=== PATIENT | female | born 1955 | race Caucasian/White ===

== ENCOUNTER 2018-01-25 18:40 | Observation (INO) | payer OTHER, SELFPAY ==
[2018-01-25] VITALS (13 sets, daily range): BP systolic 122–154; BP diastolic 54–97; PULSE 98–124; RESP 18–92; TEMP 37.3–37.7; O2SAT 19–95; BMI 31.1
--- NOTE | 2018-01-25 19:12 | NURSING ---
NO OLD EKG'S IN MUSE
[2018-01-25] MEDS: Acetaminophen 325 MG Tablet 650 MG PO (19:32)
[2018-01-25] MEDS: 0.9% Normal Saline 1,000 ML 1000 ML IV (19:32)
[2018-01-25 19:42] LABS: Absolute Lymphocyte Count 1.03 X10^3/ul (0.83-4.51); Absolute Neutrophil Count 9.4 X10^3/uL (2.0-7.7); Basophil# 0.02 X10^3/uL; Basophil% 0.2 % (0-1); Eosinophil# 0.01 X10^3/uL; Eosinophils% 0.1 % (0-5); Hematocrit 38.1 % (37-47); Hemoglobin 12.6 g/dl (12.0-15.0); Lymphocyte # 1.03 X10^3/ul (4.0); Lymphocyte % 8.6 % (19-41); Mean Corp Hgb Conc 33.1 g/gl (32-36); Mean Corpuscular Hgb 29.1 pg (27.0-32.0); Mean Platelet Vol. 9.6 fl (6.2-12.0); Monocyte# 1.45 X10^3/uL; Monocyte% 12.1 % (0-10); Neutrophil # 9.42 X10^3/uL (2.7-7.7); Neutrophil % 78.7 % (47-70); Platelet Count 227 K/mm3 (150-450); RBC Distribution Width CV 12.1 % (11.6-14.6); RBC Distribution Width SD 39.4 fl (35.1-43.9); Red Blood Count 4.33 M/mm3 (4.2-5.4)
[2018-01-25] MEDS: Albuterol 2.5 MG/3 ML VIAL.NEB. INHALATION ×3 (19:45→21:48)
[2018-01-25 19:46] LABS: POSITIVE COUNT NO; POSITIVE DIFFERENTIAL NO; POSITIVE MORPHOLOGY NO
[2018-01-25] MEDS: Ondansetron 4 MG/2 ML Vial IV (19:55)
[2018-01-25 20:10] LABS: Anion Gap 6 (5-15); BUN 23 mg/dL (7-18); BUN/Creat Ratio 22.1 RATIO (10-20); Chloride 105 mmol/L (98-107); Creatinine, Serum 1.04 mg/dL (0.55-1.02); EST Glomerular Filtration Rate 57 mL/min (>60); Est Glom Filt Rate - Afr Amer 70 mL/min (>60); Estimated Creatinine Clearance 55.94 ml/min; Glucose 122 mg/dL (74-106); Potassium 4.6 mmol/L (3.5-5.1); Sodium Level 138 mmol/L (136-145)
--- NOTE | 2018-01-25 20:35 | RAD_ITS ---
STUDY: X-RAY CHEST REASON FOR EXAM: Female, 62 years old. DYSPNEA TECHNIQUE: Frontal and lateral views of the chest. COMPARISON: None. FINDINGS: Chronic appearing increased interstitial lung markings. There is no demonstrated pleural abnormality. Normal heart size. Normal mediastinum and matthew. Normal visualized pulmonary arteries. There is atherosclerotic calcification of the aortic arch with tortuosity. There are diffuse degenerative changes of the visualized thoracic spine. There is degenerative osteoarthritis of the bilateral shoulders. There is no demonstrated abnormality of the visualized soft tissue structures of the upper abdomen. RAD/Chest PA and Lateral IMPRESSION: There are no acute findings. Electronically Signed: Damaso Sánchez MD at 21:01 EST , Service support ,
--- NOTE | 2018-01-25 22:30 | ED.DCSUM_ITS ---
- ER Visit Summary Date of Service: 01/25/18 Chief Complaint: Shortness of breath and wheezing. History of Present Illness: The patient is a 62 F sent from her doctor's office because of worsening symptoms since onset, Thursday. She complains of fever, chills and sweats. Today she complains of runny nose and sore throat. She has complained of intermittent palpitations since onset of illness. She does complain of shortness of breath cough productive of green colored sputum and dyspnea with exertion. She is a non-smoker. She has no GI symptoms. She has no urologic symptoms. She does complain of myalgias and arthralgias. Denies rash. She also complains of headache with generalized weakness. She denies any endocrine symptoms. She denies bruising easily. She denies any allergic symptoms. She has a past medical history of hypertension. She is a schoolteacher. She did not receive an influenza vaccine this year. Physical Examination: Vitals remarkable blood pressure 134/97 and heart rate 102. Pulse ox was 93% on room air. She is a heavyset woman with a BMI of 31.2. Nares patent with slight clear discharge. TMs normal. Posterior pharynx without erythema or exudate. Heart is rapid and regular without murmur , gallop or rub. Patient has bilateral rhonchi and wheezing with increased extra phase. Abdomen is soft nontender with no paraspinal megaly. There is no CVA tenderness noted. There is no skin lesion or rash noted. Neuro exam is nonfocal. Test Results: Two-view chest x-ray was obtained and reveals no acute pathology. White count is 12,000 with 79 segs. Retinae is slightly elevated 1.04 with a GFR 57. Glucose is 122. Influenza screen is negative. Patient is now requiring oxygen and on 2-3 L her saturation is only 91%. Emergency Department Course and Treatment: Was treated with albuterol ?3 and placed on oxygen for hypoxia. When she was reassessed at 20-20 she still has significant wheezing. She received a dose of Solu-Medrol. She she reports green colored sputum even though her chest x-ray is negative will administer a dose of levofloxacin. Treatment Plan: Hospitalist has been paged for admission to the hospital Disposition: [facility] Impression: 1. Respiratory infection 2. Bronchospasm 3. Respiratory failure with hypoxia 4. History of hypertension This note was generated with [employer] dictation software. It may contain incorrect words, spelling, and punctuation that were not noted in review of the chart prior to signing ED Disposition - Plan for ED Patient: Chief Complaint: Shortness of Breath Referrals: Deloris Leblanc MD [Primary Care Provider] -
[2018-01-25] MEDS: MethylPREDNISolone 125 MG/2 ML Vial IV (22:38)
--- NOTE | 2018-01-25 23:49 | HP.PCM_ITS ---
Problem List (1) Asthma attack Status: Acute Qualifiers: Asthma severity: severe Asthma persistence: persistent Qualified Code(s) : J45.51 - Severe persistent asthma with (acute) exacerbation History of Present Illness Date of Admission: 01/25/18 Chief Complaint: shortness of breath The patient is a 62 year old female patient who presents to the ER with shortness of breath. Onset began last Thursday when she presented to an urgent care and was placed on oral steroids and OTC treatment for presumed viral URI. This did get better but by the weekend she started having trouble again. Today despite knowing she had significant difficulty breathing she went to work anyway but could not complete her workday. She became very anxious as she felt as if she was unable to get sufficient air when she was breathing. CXR is negative for pneumonia. She is requiring oxygen to maintain her pulse oxygenation above 90%. After breathing treatments x 3, Solu-Medrol and Levaquin the patient started to improve. She will be admitted to medical surgical floor for continuation of her treatment. Past Medical History Allergies nitrofurantoin [From Macrobid] Adverse Reaction (Verified 01/25/18 18:45) Unknown Home Medications: Ambulatory Orders Medication Instructions Recorded Multivitamins,Therapeutic 1 tab PO DAILY 04/26/15 [Multivitamin] Valsartan/Hydrochlorothiazide 0.5 tab PO DAILY 01/25/18 [Valsartan-Hctz 160-25 mg Tab] Surgical History: no surgical history Smoking Status: Never smoker - *Family History Maternal History Items: No pertinent history Review of Systems Constitutional: Reports: Fever. Denies: Chills, Weight Change HEENT: Denies: Head Aches, Sinus Congestion, Sinus Drainage Cardiovascular: Denies: Chest Pain, Palpitations Respiratory: Reports: Cough, Pleuritic Pain, Shortness of breath at rest, Shortness of breath upon exertion, Wheezing. Denies: Sputum production Gastrointestinal: Denies: Abdominal Pain, Nausea, Vomiting Genitourinary: Denies: Dysuria Musculoskeletal: Denies: Joint Pain, Joint Tenderness Skin: Denies: Rash, Wounds Neurological: Denies: Numbness, Tingling, Focal weakness Psychiatric: Reports: Anxiety. Denies: Depression, Homicidal Ideations, Suicidal Ideations Hematologic/ Lymphatic: Denies: Easy Bruising, Easy Bleeding VTE Information - Inpt Only VTE Present on Admission: No VTE Mechan Device Prophylaxis: None VTE Pharm Prophylaxis ordered?: Yes Patient Problems: Active and Suspected Problems Asthma attack (Acute) - Physical Exam General: Alert, Oriented x3, Cooperative HEENT: Atraumatic, Normocephalic Neck: Supple Lungs: Diminished, Rhonchi, Tachypneic, Wheezes Cardiovascular: Regular Rhythm, Normal S1, Normal S2, No murmurs, Tachycardic Abdomen: Bowel Sounds Present, Soft, Non Tender, Obese Extremities: No edema, Capillary Refill Less than 3 Seconds Skin: No rashes Musculoskeletal: No Tenderness to Palpation of Joints or Extremities Neurological: Neuro grossly intact Psych/Mental Status: Normal Affect, Appropriate Vital Signs Temp Pulse Resp BP Pulse Ox 99.1 F 115 H 92 H 122/59 H 20 01/25/18 23:16 01/25/18 23:16 01/25/18 23:16 01/25/18 23:16 01/25/18 23:16 Oxygen Flow Rate 3 Oxygen Delivery Method Nasal Cannula Weight: 199 lb Body Mass Index (BMI) 31.1 Microbiology Past 72 Hours 01/25/18 19:47 Influenza Types A,B Direct FA (KANNAN) - Final Mucosa - Nose Laboratory Tests Past 24 Hrs 01/25/18 01/25/18 19:29 19:29 WBC 12.0 H RBC 4.33 Hgb 12.6 Hct 38.1 MCV 88.0 MCH 29.1 MCHC 33.1 RDW 12.1 RDW Differential 39.4 Plt Count 227 MPV 9.6 Immature Gran % (Auto) 0.300 Neut % (Auto) 78.7 H Lymph % (Auto) 8.6 L [place] % (Auto) 12.1 H Eos % (Auto) 0.1 Baso % (Auto) 0.2 Absolute Neuts (auto) 9.4 H Absolute Lymphs (auto) 1.03 Total Counted Not Reportable Sodium 138 Potassium 4.6 Chloride 105 Carbon Dioxide 27.0 Anion Gap 6 BUN 23 H Creatinine 1.04 H Estim Creat Clear Calc 55.94 Est GFR (MDRD) Af Amer 70 Est GFR (MDRD) Non-Af 57 L BUN/Creatinine Ratio 22.1 H Glucose 122 H Calcium 9.0 TSH Cancelled Assessment/Plan Active and Suspected Problems Asthma attack (Acute) Plan - admit to medical surgical floor - duoneb INH q 4hrs - solumedrol 40mg IV q 6hrs - levaquin 500mg q 24hrs - oxygen per protocol - continue routine home medications - cbc, bmp in am - LMWH for DVT prophylaxis Code Visit Inpatient E&M: 71905 Init Hosp L3
[2018-01-26] VITALS (15 sets, daily range): BP systolic 113–142; BP diastolic 64–67; PULSE 76–113; RESP 12–20; TEMP 36.6–38.9; O2SAT 93–98; BMI 31.6; BMI 31.7
[2018-01-26] MEDS: Acetaminophen 325 MG Tablet 650 MG PO (00:24)
[2018-01-26] MEDS: 0.9% NaCl Peripheral Flush Adult/Peds IV ×4 (06:01→13:45)
[2018-01-26 06:24] LABS: Absolute Lymphocyte Count 0.57 X10^3/ul (0.83-4.51); Absolute Neutrophil Count 11.1 X10^3/uL (2.0-7.7); Basophil# 0.01 X10^3/uL; Basophil% 0.1 % (0-1); Hematocrit 36.2 % (37-47); Hemoglobin 11.9 g/dl (12.0-15.0); Lymphocyte # 0.57 X10^3/ul (4.0); Lymphocyte % 4.6 % (19-41); Mean Corp Hgb Conc 32.9 g/gl (32-36); Mean Corpuscular Volume 88.3 fL (81-99); Mean Platelet Vol. 9.5 fl (6.2-12.0); Monocyte# 0.86 X10^3/uL; Monocyte% 6.9 % (0-10); Neutrophil # 11.06 X10^3/uL (2.7-7.7); Neutrophil % 88.2 % (47-70); Platelet Count 222 K/mm3 (150-450); RBC Distribution Width CV 12.3 % (11.6-14.6); RBC Distribution Width SD 39.7 fl (35.1-43.9); White Blood Count 12.5 K/mm3 (4.4-11.0)
[2018-01-26 06:26] LABS: Differential Indicated SCAN CRITERIA MET; POSITIVE COUNT NO; POSITIVE DIFFERENTIAL YES; POSITIVE MORPHOLOGY NO
[2018-01-26 06:44] LABS: ALB/GLOB Ratio 0.7 RATIO (0.9-2.4); AST(SGOT) 9 U/L (15-37); Alanine Aminotransfer ALT/SGPT 19 U/L (13-56); Albumin, Serum 2.8 g/dL (3.2-5.0); Alkaline Phosphatase 72 U/L (45-117); Anion Gap 7 (5-15); BUN 15 mg/dL (7-18); BUN/Creat Ratio 17.2 RATIO (10-20); Calcium,Total 8.4 mg/dL (8.5-10.1); Chloride 108 mmol/L (98-107); Creatinine, Serum 0.87 mg/dL (0.55-1.02); EST Glomerular Filtration Rate 70 mL/min (>60); Est Glom Filt Rate - Afr Amer 85 mL/min (>60); Estimated Creatinine Clearance 66.87 ml/min; Globulin 3.8 g/dL (2.2-4.2); Glucose 222 mg/dL (74-106); Potassium 3.9 mmol/L (3.5-5.1); Protein, Total 6.6 g/dL (6.4-8.2); Sodium Level 142 mmol/L (136-145)
--- NOTE | 2018-01-26 06:46 | PCM.PROGNOTE ---
Patient Problems: Active and Suspected Problems Asthma attack (Acute) Subjective: Levaquin day #2 Patient is a 62-year-old female with a past medical history of hypertension who presented to the emergency department at [facility] on 01/25/2018 complaining of shortness of breath for the preceding 5 days. She had been seen at the urgent care and placed on steroids and [id number] of supportive medications for presumed viral URI. Vital signs at presentation to the emergency room were temp 99.3, pulse rate 98, blood pressure 154/91, respiratory rate 20 and she was 90% saturated on room air. Significant lab included a white blood cell count of 12,000 with 79% neutrophils. Hemoglobin and platelets were within normal limits. Electrolytes were within normal limits but the BUN was increased at 23 and the creatinine was 1.04. We have no baseline creatinine. Random blood sugar was elevated at 122 and she has no history of diabetes mellitus. LFTs were unremarkable. Influenza swab was negative. Chest x-ray had no infiltrates. Physical examination revealed her to be tachypneic with diminished breath sounds, rhonchi and wheezes. She is a lifelong non-smoker. She was admitted to the hospital with a diagnosis of acute bronchospastic RI and placed on Levaquin, aerosolized bronchodilators and high-dose intravenous steroids. T-max was 102 overnight. Vital signs are stable. She is 95-97% saturated on a 2 L nasal cannula with a respiratory rate of 16-18. White blood cell count today is 12.5 but she has been on high-dose steroids since admission. Creat has improved and is 0.87 today, down from 1.04 yesterday. Respiratory panel is positive for Human Metaphpneumo Virus. She tells me she feels very tired but her breathing is somewhat better than yesterday. She does continue to have shortness of breath with exertion. Cough is mild. She did have asthma as a child and still uses a as needed rescue inhaler. She seems to have more wheezing when she gets bronchitis. 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 - Physical Exam General: Alert, Oriented x3, Cooperative, No apparent distress, - - looks tired HEENT: Atraumatic, PERRLA, EOMI Oral: Moist Mucosa, No Gingival or Mucosal Lesions/ Ulcerations Neck: Supple, No Nodes, No Nuchal Rigidity, Trachea Midline Lungs: Normal air movement, No rales, Rhonchi, - - She is not tachypneic and has no conversational dyspnea or accessory muscle use at rest. There is no tight wheezing but she does have coarse breath sounds bilaterally. Cardiovascular: Regular rate, Regular Rhythm, Normal S1, Normal S2, No murmurs, No rub noted, No Gallop Abdomen: Bowel Sounds Present, Soft, Non Tender, Non-Distended Extremities: No clubbing, No cyanosis, No edema, No Calf Tenderness, Peripheral Pulses Normal Skin: No rashes, No breakdown Psych/Mental Status: Normal Affect, Appropriate Vital Signs Temp Pulse Resp BP Pulse Ox 97.9 F 79 16 128/66 H 97 01/26/18 05:58 01/26/18 05:58 01/26/18 05:58 01/26/18 05:58 01/26/18 05:58 Oxygen Flow Rate 2 Oxygen Delivery Method Nasal Cannula Weight: 202 lb 6.15 oz Body Mass Index (BMI) 31.6 Intake and Output for Last 24 Hours 01/24/18 01/25/18 01/26/18 23:59 23:59 23:59 Intake Total 0 / 0 Balance 0 / 0 Laboratory Tests Past 24 Hrs 01/26/18 01/26/18 05:55 05:55 WBC 12.5 H RBC 4.10 L Hgb 11.9 L Hct 36.2 L MCV 88.3 MCH 29.0 MCHC 32.9 RDW 12.3 RDW Differential 39.7 Plt Count 222 MPV 9.5 Immature Gran % (Auto) 0.200 Neut % (Auto) 88.2 H Lymph % (Auto) 4.6 L [place] % (Auto) 6.9 Eos % (Auto) 0.0 Baso % (Auto) 0.1 Absolute Neuts (auto) 11.1 H Absolute Lymphs (auto) 0.57 L Total Counted Not Reportable Differential Comment Sodium 142 Potassium 3.9 Chloride 108 H Carbon Dioxide 27.0 Anion Gap 7 BUN 15 Creatinine 0.87 Estim Creat Clear Calc 66.87 Est GFR (MDRD) Af Amer 85 Est GFR (MDRD) Non-Af 70 BUN/Creatinine Ratio 17.2 Glucose 222 H Calcium 8.4 L Total Bilirubin 0.80 AST 9 L ALT 19 Alkaline Phosphatase 72 Total Protein 6.6 Albumin 2.8 L Globulin 3.8 Albumin/Globulin Ratio 0.7 L Assessment/Plan Active and Suspected Problems Asthma attack (Acute) Impressions 1. Acute bronchitis secondary to Human Metaphpneumo Virus 2. Acute exacerbation of asthma secondary to acute viral bronchitis 3. Hypertension 4. Mild dehydration with elevated creatinine at admission-resolved DC the HCTZ since the creat was increased at admission and her appetite is decreased DC the Levaquin and treat with 3 doses of PO Azithromycin Transition to PO Prednisone in the AM and will need a steroid taper at [place] Ambulatory pulse ox on RA in the AM No work for the rest of the week Probable DC tomorrow. symbicort at [place] and will continue the rescue inhaler she has at home Code Visit Inpatient E&M: [id number] Subs Hosp L2
--- NOTE | 2018-01-26 06:57 | PN_ITS ---
Patient Problems: Active and Suspected Problems Asthma attack (Acute) Subjective: Levaquin day #2 Patient is a 62-year-old female with a past medical history of hypertension who presented to the emergency department at [facility] on 2017 complaining of shortness of breath for the preceding 5 days. She had been seen at the urgent care and placed on steroids and scez-jhy-xpteofl of supportive medications for presumed viral URI. Vital signs at presentation to the emergency room were temp 99.3, pulse rate 98, blood pressure 154/91, respiratory rate 20 and she was 90% saturated on room air. Significant lab included a white blood cell count of 12,000 with 79% neutrophils. Hemoglobin and platelets were within normal limits. Electrolytes were within normal limits but the BUN was increased at 23 and the creatinine was 1.04. We have no baseline creatinine. Random blood sugar was elevated at 122 and she has no history of diabetes mellitus. LFTs were unremarkable. Influenza swab was negative. Chest x-ray had no infiltrates. Physical examination revealed her to be tachypneic with diminished breath sounds, rhonchi and wheezes. She is a lifelong non-smoker. She was admitted to the hospital with a diagnosis of acute bronchospastic RI and placed on Levaquin, aerosolized bronchodilators and high-dose intravenous steroids. T-max was 102 overnight. Vital signs are stable. She is 95-97% saturated on a 2 L nasal cannula with a respiratory rate of 16-18. White blood cell count today is 12.5 but she has been on high-dose steroids since admission. Creat has improved and is 0.87 today, down from 1.04 yesterday. Respiratory panel is positive for Human Metaphpneumo Virus. She tells me she feels very tired but her breathing is somewhat better than yesterday. She does continue to have shortness of breath with exertion. Cough is mild. She did have asthma as a child and still uses a as needed rescue inhaler. She seems to have more wheezing when she gets bronchitis. 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 - Physical Exam General: Alert, Oriented x3, Cooperative, No apparent distress, - - looks tired HEENT: Atraumatic, PERRLA, EOMI Oral: Moist Mucosa, No Gingival or Mucosal Lesions/ Ulcerations Neck: Supple, No Nodes, No Nuchal Rigidity, Trachea Midline Lungs: Normal air movement, No rales, Rhonchi, - - She is not tachypneic and has no conversational dyspnea or accessory muscle use at rest. There is no tight wheezing but she does have coarse breath sounds bilaterally. Cardiovascular: Regular rate, Regular Rhythm, Normal S1, Normal S2, No murmurs, No rub noted, No Gallop Abdomen: Bowel Sounds Present, Soft, Non Tender, Non-Distended Extremities: No clubbing, No cyanosis, No edema, No Calf Tenderness, Peripheral Pulses Normal Skin: No rashes, No breakdown Psych/Mental Status: Normal Affect, Appropriate Vital Signs Temp Pulse Resp BP Pulse Ox 97.9 F 79 16 128/66 H 97 01/26/18 05:58 01/26/18 05:58 01/26/18 05:58 01/26/18 05:58 01/26/18 05:58 Oxygen Flow Rate 2 Oxygen Delivery Method Nasal Cannula Weight: 202 lb 6.15 oz Body Mass Index (BMI) 31.6 Intake and Output for Last 24 Hours 01/24/18 01/25/18 01/26/18 23:59 23:59 23:59 Intake Total 0 / 0 Balance 0 / 0 Laboratory Tests Past 24 Hrs 01/26/18 01/26/18 05:55 05:55 WBC 12.5 H RBC 4.10 L Hgb 11.9 L Hct 36.2 L MCV 88.3 MCH 29.0 MCHC 32.9 RDW 12.3 RDW Differential 39.7 Plt Count 222 MPV 9.5 Immature Gran % (Auto) 0.200 Neut % (Auto) 88.2 H Lymph % (Auto) 4.6 L [place] % (Auto) 6.9 Eos % (Auto) 0.0 Baso % (Auto) 0.1 Absolute Neuts (auto) 11.1 H Absolute Lymphs (auto) 0.57 L Total Counted Not Reportable Differential Comment Sodium 142 Potassium 3.9 Chloride 108 H Carbon Dioxide 27.0 Anion Gap 7 BUN 15 Creatinine 0.87 Estim Creat Clear Calc 66.87 Est GFR (MDRD) Af Amer 85 Est GFR (MDRD) Non-Af 70 BUN/Creatinine Ratio 17.2 Glucose 222 H Calcium 8.4 L Total Bilirubin 0.80 AST 9 L ALT 19 Alkaline Phosphatase 72 Total Protein 6.6 Albumin 2.8 L Globulin 3.8 Albumin/Globulin Ratio 0.7 L Assessment/Plan Active and Suspected Problems Asthma attack (Acute) Impressions 1. Acute bronchitis secondary to Human Metaphpneumo Virus 2. Acute exacerbation of asthma secondary to acute viral bronchitis 3. Hypertension 4. Mild dehydration with elevated creatinine at admission-resolved DC the HCTZ since the creat was increased at admission and her appetite is decreased DC the Levaquin and treat with 3 doses of PO Azithromycin Transition to PO Prednisone in the AM and will need a steroid taper at [place] Ambulatory pulse ox on RA in the AM No work for the rest of the week Probable DC tomorrow. symbicort at [place] and will continue the rescue inhaler she has at home Code Visit Inpatient E&M: 45589 Subs Hosp L2
[2018-01-26] MEDS: Ipratropium/Albuterol Sulfate 3 ML AMPUL.NEB INHALATION ×4 (07:00→23:02)
[2018-01-26 08:13] LABS: Hemoglobin A1c 5.8 % (4.2-6.3)
[2018-01-26] MEDS: Multivitamins,Therapeutic Tablet 1 TABLET PO (08:21)
[2018-01-26] MEDS: HYDROCHLOROTHIAZIDE 12.5 MG CAPSULE PO (08:21)
[2018-01-26 08:27] LABS: BNP,B-Type NATRIURETIC PEPTIDE 183.7 pg/mL (0-100)
--- NOTE | 2018-01-26 10:22 | CASEMGMT ---
RN MISSY Face to Face with patient for initial transition planning/care coordination assessment. RN CM introduced self and role at [facility]. Patient sitting in chair, alert and oriented. Patient willing to participate in assessment and is able to answer all questions appropriately. Care providers, pharmacy, and demographics verified. See link attached. Patient wishes to discharge home, denies need for home health at this time. Patient states she has no further needs or concerns at this time. CM to follow for discharge planning needs that may arise. Disposition Plan: Patient to discharge home with family support and follow-up plans in place.
[2018-01-27 01:45] VITALS: BP 120/58; PULSE 75; RESP 18; TEMP 37.1; O2SAT 95
[2018-01-27] MEDS: Ipratropium/Albuterol Sulfate 3 ML AMPUL.NEB INHALATION ×2 (07:03→10:47)
[2018-01-27 07:15] VITALS: PULSE 85; RESP 20
[2018-01-27 08:08] VITALS: O2SAT 95
[2018-01-27] MEDS: Multivitamins,Therapeutic Tablet 1 TABLET PO (08:53)
[2018-01-27] MEDS: Azithromycin 250 MG Tablet 500 MG PO (08:56)
[2018-01-27 09:52] VITALS: BP 128/61; PULSE 93; RESP 18; TEMP 36.8; O2SAT 94
[2018-01-27 10:54] VITALS: PULSE 86; RESP 19
--- NOTE | 2018-01-27 11:53 | PCM.WORK.EX ---
Work/School Excuse Work/School Excuse for:: Patient Please excuse this person from:: Work From: 01/25/18 through: 01/31/18
--- NOTE | 2018-01-27 11:54 | PCM.DC ---
- Discharge Diagnoses Current Active Problems: Current Active and Chronic Problems Asthma attack (Acute) You will use the following diet at home:: No restrictions Your food should be the consistency of: Regular Your liquids should be the consistency of: Regular/Thin Discharge Activity: - - Avoid exposure to any strong smells such as bleach, cleaning products, strong colognes or perfumes, paint fumes and smoke of any kind. Avoid sudden exposure to cold air because this can cause bronchospasm. You may want to cover your mouth when you go outside in the winter. Avoid exposure to anyone who is sick with a cough or sore throat. Call your doctor if you observe: Fever of 101 or Higher, Shortness of breath, - - Increased cough, purulent sputum, chest pain Additional Instructions: 1. I want you to use the Symbicort inhaler twice a day for the next 7-10 days and then if no wheezing and no shortness of breath you can discontinue the symbicort but continue the Albuterol as needed. 2. You were dehydrated when you came to the hospital and the kidney function was mildly decreased....this corrected with IV fluids. I am giving you a prescription for Valsartan without the diuretic to take. Your BP in the hospital has been good. 3. Prednisone can sometimes cause a yeast infection in women so if you have any vaginal itching or Discharge you can either call your family physician for a prescription or go to the pharmacy an get Monostat.....it is available over the counter and you do not need a prescription. Allergies/Adverse Reactions: Allergies nitrofurantoin [From Macrobid] Adverse Reaction (Verified 01/25/18 18:45) Unknown Medications to take at Discharge Multivitamins,Therapeutic [Multivitamin] 1 tab PO DAILY 04/26/15 Fish Oil 1 tab PO QHS 01/26/18 Magnesium 1 tablet PO QHS 01/26/18 Albuterol Inhaler [Ventolin Hfa] 2 puff INHALATION Q4H PRN PRN #1 inhaler 01/27/18 Azithromycin [Zithromax] 500 mg PO Q24 #2 tab 01/27/18 Budesonide/Formoterol 160/4.5 [Symbicort 160/4.5 Mcg Inhaler (SP)] 2 puff INHALATION BID #1 inhaler 01/27/18 Valsartan [Diovan] 80 mg PO DAILY #30 tab 01/27/18 The following prescriptions were given: Albuterol Inhaler [Ventolin Hfa] 2 puff INHALATION Q4H PRN PRN #1 inhaler PRN Reason: wheezing/short of breath Azithromycin [Zithromax] 500 mg PO Q24 #2 tab Valsartan [Diovan] 80 mg PO DAILY #30 tab Budesonide/Formoterol 160/4.5 [Symbicort 160/4.5 Mcg Inhaler (SP)] 2 puff INHALATION BID #1 inhaler Primary Care Physician: Deloris Leblanc MD [Primary Care Provider] - Please follow up with your Primary Care Physician in: 7-10 days Proposed Discharge Date: 01/27/18
--- NOTE | 2018-01-27 12:07 | PCM.DC.SUM ---
Discharge Date and Diagnosis Date of Admission: 01/25/18 Date of Discharge: 01/27/18 - Primary Discharge Diagnosis Active and Suspected Problems Acute bronchitis (Acute) due to Human Metaphpneumo Virus Acute asthma exacerbation (Acute) Dehydration (Acute) Elevated serum creatinine (Acute) due to dehydration - Secondary Discharge Diagnosis Chronic Problems Asthma (Chronic) Hypertension (Chronic) Hospital Course and Treatment Imaging Results: Clinical Impression(s) from Imaging Studies Chest X-Ray 01/25/18 20:35 IMPRESSION: There are no acute findings. Electronically Signed: Damaso Sánchez MD at 21:01 EST , Service support , Laboratory Tests 01/25/18 01/25/18 01/26/18 19:29 19:29 05:55 WBC 12.0 H 12.5 H RBC 4.33 4.10 L Hgb 12.6 11.9 L Hct 38.1 36.2 L MCV 88.0 88.3 MCH 29.1 29.0 MCHC 33.1 32.9 RDW 12.1 12.3 RDW Differential 39.4 39.7 Plt Count 227 222 MPV 9.6 9.5 Immature Gran % (Auto) 0.300 0.200 Neut % (Auto) 78.7 H 88.2 H Lymph % (Auto) 8.6 L 4.6 L [place] % (Auto) 12.1 H 6.9 Eos % (Auto) 0.1 0.0 Baso % (Auto) 0.2 0.1 Absolute Neuts (auto) 9.4 H 11.1 H Absolute Lymphs (auto) 1.03 0.57 L Total Counted Not Reportable Not Reportable Differential Comment Sodium 138 Potassium 4.6 Chloride 105 Carbon Dioxide 27.0 Anion Gap 6 BUN 23 H Creatinine 1.04 H Estim Creat Clear Calc 55.94 Est GFR (MDRD) Af Amer 70 Est GFR (MDRD) Non-Af 57 L BUN/Creatinine Ratio 22.1 H Glucose 122 H Hemoglobin A1c Calcium 9.0 Total Bilirubin AST ALT Alkaline Phosphatase B-Natriuretic Peptide Total Protein Albumin Globulin Albumin/Globulin Ratio TSH Cancelled 01/26/18 01/26/18 01/26/18 05:55 05:55 05:55 WBC RBC Hgb Hct MCV MCH MCHC RDW RDW Differential Plt Count MPV Immature Gran % (Auto) Neut % (Auto) Lymph % (Auto) [place] % (Auto) Eos % (Auto) Baso % (Auto) Absolute Neuts (auto) Absolute Lymphs (auto) Total Counted Differential Comment Sodium 142 Potassium 3.9 Chloride 108 H Carbon Dioxide 27.0 Anion Gap 7 BUN 15 Creatinine 0.87 Estim Creat Clear Calc 66.87 Est GFR (MDRD) Af Amer 85 Est GFR (MDRD) Non-Af 70 BUN/Creatinine Ratio 17.2 Glucose 222 H Hemoglobin A1c 5.8 Calcium 8.4 L Total Bilirubin 0.80 AST 9 L ALT 19 Alkaline Phosphatase 72 B-Natriuretic Peptide 183.7 H Total Protein 6.6 Albumin 2.8 L Globulin 3.8 Albumin/Globulin Ratio 0.7 L TSH Microbiology 01/26/18 10:45 Mucosa - Nasopharyngeal Respiratory Panel (PCR) - Final Human [place] 01/25/18 19:47 Mucosa - Nose Influenza Types A,B Direct FA (KANNAN) - Final None Operations: None Procedures: None Summary of Care Provided: Patient is a 62-year-old female with a past medical history of hypertension and asthma as a child who presented to the emergency department at [facility] on 01/25/2018 complaining of shortness of breath for the preceding 5 days. She had been seen at the urgent care and placed on steroids and [id number] of supportive medications for presumed viral URI. Vital signs at presentation to the emergency room were temp 99.3, pulse rate 98, blood pressure 154/91, respiratory rate 20 and she was 90% saturated on room air. Significant lab included a white blood cell count of 12,000 with 79% neutrophils. Hemoglobin and platelets were within normal limits. Electrolytes were within normal limits but the BUN was increased at 23 and the creatinine was 1.04. We have no baseline creatinine. Random blood sugar was elevated at 122 and she has no history of diabetes mellitus. LFTs were unremarkable. Influenza swab was negative. Chest x-ray had no infiltrates. Physical examination revealed her to be tachypneic with diminished breath sounds, rhonchi and wheezes. She is a lifelong non-smoker. She was admitted to the hospital with a diagnosis of acute bronchospastic RI and placed on Levaquin, aerosolized bronchodilators and high-dose intravenous steroids. A respiratory panel was obtained the following morning and was positive for Human Metaphpneumo Virus. Levaquin was discontinued and she was started on a 3 day course of azithromycin. Supportive care continued. A hemoglobin A1c was obtained and was within normal limits at 5.8. On her breathing had improved but she remained fatigued. She was discharged home with a prescription for an albuterol rescue inhaler, azithromycin 500 mg ?2 tabs, valsartan 80 mg p.o. daily, a prednisone taper and Symbicort 2 puffs twice daily. Hydrochlorothiazide was continued due to dehydration and hypokalemia at admission. While in the hospital her blood pressure was well controlled on valsartan. Will follow up with Dr. Leblanc in the office in 7-10 days, sooner if her condition worsens. This note was generated with [employer] dictation software. It may contain incorrect words, spelling, and punctuation that were not noted in checking the note before signing. Discharge Activity: - - Avoid exposure to any strong smells such as bleach, cleaning products, strong colognes or perfumes, paint fumes and smoke of any kind. Avoid sudden exposure to cold air because this can cause bronchospasm. You may want to cover your mouth when you go outside in the winter. Avoid exposure to anyone who is sick with a cough or sore throat. Call your doctor if you observe: Fever of 101 or Higher, Shortness of breath, - - Increased cough, purulent sputum, chest pain Home Medications: Medications to take at Discharge Multivitamins,Therapeutic [Multivitamin] 1 tab PO DAILY 04/26/15 Fish Oil 1 tab PO QHS 01/26/18 Magnesium 1 tablet PO QHS 01/26/18 Albuterol Inhaler [Ventolin Hfa] 2 puff INHALATION Q4H PRN PRN #1 inhaler 01/27/18 Azithromycin [Zithromax] 500 mg PO Q24 #2 tab 01/27/18 Budesonide/Formoterol 160/4.5 [Symbicort 160/4.5 Mcg Inhaler (SP)] 2 puff INHALATION BID #1 inhaler 01/27/18 Prednisone 10 mg PO UD #30 tab 01/27/18 Valsartan [Diovan] 80 mg PO DAILY #30 tab 01/27/18 Following Prescrptions Were Given to Patient: Albuterol Inhaler [Ventolin Hfa] 2 puff INHALATION Q4H PRN PRN #1 inhaler PRN Reason: wheezing/short of breath Azithromycin [Zithromax] 500 mg PO Q24 #2 tab Prednisone 10 mg PO UD #30 tab Valsartan [Diovan] 80 mg PO DAILY #30 tab Budesonide/Formoterol 160/4.5 [Symbicort 160/4.5 Mcg Inhaler (SP)] 2 puff INHALATION BID #1 inhaler Primary Care Physician: Deloris Leblanc MD [Primary Care Provider] - Please follow up with your Primary Care Physician in: 7-10 days Disposition: Home Minutes spent on discharge:: 30 Patient Condition:: Good Meaningful Use Info Meaningful Use Diagnoses (Choose all that apply): None applicable Code Visit Inpatient E&M: 37639 Disch Hosp
[2018-01-27 13:00] VITALS: BP 133/67; PULSE 81; RESP 18; TEMP 37.3; O2SAT 92
== END 2018-01-27 13:31 | disposition home or self-care (01) | DRG 202 ==
LOC: ED 21:14 → MS3 01-26 00:18
PROVIDERS: Admitting Provider Family Medicine; Emergency Provider Emergency Medicine; Family Provider Internal Medicine; PCP Internal Medicine; Visit Provider Internal Medicine
DX: J20.8 Acute bronchitis due to other specified organisms (principal); J45.51 Severe persistent asthma with (acute) exacerbation; B97.81 Human metapneumovirus as the cause of diseases classified elsewhere; I10 Essential (primary) hypertension; E86.0 Dehydration; Z79.899 Other long term (current) drug therapy; R73.9 Hyperglycemia, unspecified; E87.6 Hypokalemia; R06.02 Shortness of breath
CPT/HCPCS: 36415; 71046; 80048; 80053; 83036; 83880; 85025; 87633; 87804; 94640; 96361; 96365; 96366; 96375; 96376; 99218; 99283; J7030; A4216; G0378; J2405

== ENCOUNTER 2018-03-22 09:26 | Observation (INO) | payer OTHER, SELFPAY ==
[2018-03-22] VITALS (10 sets, daily range): BP systolic 119–161; BP diastolic 66–91; PULSE 66–87; RESP 14–18; TEMP 36.1–36.9; O2SAT 94–99; BMI 33.0; BMI 32.2
--- NOTE | 2018-03-22 09:43 | EKG12_ITS ---
Test Reason : REPEAT Blood Pressure : / mmHG Vent. Rate : 069 BPM Atrial Rate : 069 BPM P-R Int : 184 ms QRS Dur : 086 ms QT Int : 402 ms P-R-T Axes : 045 044 057 degrees QTc Int : 430 ms Normal sinus rhythm Normal ECG Confirmed by ROJELIO KELLY, KIM ([id number]), production editor WILBERT PARKER ([id number]) on 03/25/2018 12:59:52 PM Referred By: JACOB Confirmed By:KIM SERRATO MD
--- NOTE | 2018-03-22 09:43 | RAD_ITS ---
STUDY: X-RAY CHEST REASON FOR EXAM: Female, 62 years old. Chest pain. TECHNIQUE: Single portable upright frontal chest. COMPARISON: January 25, 2018. FINDINGS: The lungs are clear and expanded. There is no pleural effusion. There is no pneumothorax. Normal size heart. Normal mediastinum and matthew. Normal visualized pulmonary arteries. Normal visualized aortic arch and descending thoracic aorta. There is no evident acute osseous abnormality. There is no demonstrated abnormality of the visualized soft tissue structures of the upper abdomen. RAD/Chest 1 View (Portable) IMPRESSION: Stable exam. No evident acute cardiopulmonary disease. Electronically Signed: Ziggy Marinelli MD at 10:11 EDT , Service support ,
--- NOTE | 2018-03-22 09:46 | ED.DCSUM_ITS ---
- ER Visit Summary Date of Service: 03/22/18 Chief Complaint: [Chest pain] History of Present Illness: The patient is a 62 F [presents to the emergency department with retrosternal chest pain that started 1 hour ago. Patient states that discomforts been intermittent and lasts anywhere from 1-2 minutes. Patient describes it as a tightness. Patient states the pain at times will radiate to her back. 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 Patient is never had discomfort like this before. Patient denies any shortness of breath. Patient denies nausea or diaphoresis. Patient did take aspirin while at work.] Patient has no heart history. Patient does have history of hypertension. Physical Examination: [HEENT-PERRLA, EOMI. Cranial nerves II through XII grossly intact. TMs clear. Mucous membranes moist. No adenopathy. Cardiovascular-regular rate and rhythm without murmur or ectopy Lungs-clear to auscultation, chest wall stable without crepitus or subcu emphysema Abdomen-normoactive bowel sounds, soft, nontender, no rebound or rigidity, no peritoneal signs. Extremities-intact ?4, normal range of motion, normal pulses, atraumatic] Test Results: [EKG obtained arrival shows sinus rhythm with a ventricular rate of 76 bpm. CBC with differential was normal. Chemistries were normal. Troponin was less than 0.02. Chest x-ray showed nothing acute.] Patient had a repeat EKG also obtained which was unchanged from first 1. Emergency Department Course and Treatment: [Patient received 1 sublingual nitro in the department that resolved her pain. Patient had an inch of Nitropaste placed to the anterior chest wall.] Treatment Plan: [Admit for further workup and evaluation of her chest pain.] Disposition: [Admit] Impression: [Chest pain-rule out acute coronary syndrome] This note was generated with [employer] dictation software. It may contain incorrect words, spelling, and punctuation that were not noted in review of the chart prior to signing ED Disposition - Plan for ED Patient: Chief Complaint: Chest Pain Referrals: Deloris Leblanc MD [Primary Care Provider] -
[2018-03-22 09:58] LABS: Absolute Lymphocyte Count 1.95 X10^3/ul (0.83-4.51); Absolute Neutrophil Count 2.1 X10^3/uL (2.0-7.7); Basophil# 0.04 X10^3/uL; Basophil% 0.8 % (0-1); Eosinophil# 0.33 X10^3/uL; Eosinophils% 6.7 % (0-5); Hematocrit 40.2 % (37-47); Hemoglobin 13.7 g/dl (12.0-15.0); Lymphocyte # 1.95 X10^3/ul (4.0); Lymphocyte % 39.5 % (19-41); Mean Corp Hgb Conc 34.1 g/gl (32-36); Mean Corpuscular Hgb 29.5 pg (27.0-32.0); Mean Corpuscular Volume 86.6 fL (81-99); Mean Platelet Vol. 9.8 fl (6.2-12.0); Monocyte# 0.47 X10^3/uL; Monocyte% 9.5 % (0-10); Neutrophil # 2.14 X10^3/uL (2.7-7.7); Neutrophil % 43.3 % (47-70); Platelet Count 221 K/mm3 (150-450); RBC Distribution Width CV 12.5 % (11.6-14.6); RBC Distribution Width SD 38.8 fl (35.1-43.9); Red Blood Count 4.64 M/mm3 (4.2-5.4); White Blood Count 4.9 K/mm3 (4.4-11.0)
[2018-03-22 10:01] LABS: POSITIVE COUNT NO; POSITIVE DIFFERENTIAL NO; POSITIVE MORPHOLOGY NO
[2018-03-22] MEDS: 0.9% Normal Saline 1,000 ML 150 ML IV (10:04)
[2018-03-22 10:14] LABS: Anion Gap 4 (5-15); BUN 20 mg/dL (7-18); BUN/Creat Ratio 25.6 RATIO (10-20); Calcium,Total 9.3 mg/dL (8.5-10.1); Chloride 108 mmol/L (98-107); Creatinine, Serum 0.78 mg/dL (0.55-1.02); EST Glomerular Filtration Rate 80 mL/min (>60); Est Glom Filt Rate - Afr Amer 97 mL/min (>60); Estimated Creatinine Clearance 74.59 ml/min; Glucose 105 mg/dL (74-106); Potassium 3.8 mmol/L (3.5-5.1); Sodium Level 140 mmol/L (136-145)
--- NOTE | 2018-03-22 10:34 | ED.RN ---
HOSPITALIST PAGED FOR DR JAMES
--- NOTE | 2018-03-22 11:10 | EKG12_ITS ---
Test Reason : CP Blood Pressure : / mmHG Vent. Rate : 076 BPM Atrial Rate : 076 BPM P-R Int : 160 ms QRS Dur : 082 ms QT Int : 364 ms P-R-T Axes : 031 048 063 degrees QTc Int : 409 ms Normal sinus rhythm Normal ECG Confirmed by ROJELIO KELLY, KIM ([id number]), photograph editor WILBERT PARKER ([id number]) on 03/25/2018 12:59:32 PM Referred By: JACOB/JUAN Confirmed By:KIM SERRATO MD
--- NOTE | 2018-03-22 11:16 | PCM.HP.STD ---
Problem List (1) Chest pain Status: Acute Qualifiers: Chest pain type: unspecified Qualified Code(s): R07.9 - Chest pain, unspecified (2) Hypertension Status: Chronic Qualifiers: Hypertension type: essential hypertension Qualified Code(s): I10 - Essential (primary) hypertension History of Present Illness Date of Admission: 03/22/18 Chief Complaint: Chest pain - 1 day The patient is a 62 year old F with past medical history of hypertension, who comes in with complaints of substernal pressure ongoing for 2 hours. 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 She went to the school nurse and was given aspirin we did not help with the pain. Patient was brought to the ED and chest pain got relieved with nitro. No history of cardiac conditions or stress test. Vitals in the ED with unremarkable except for slight elevation in BP. Admitting blood work was unremarkable. Chest x-ray was negative for any acute cardiopulmonary process. Past Medical History Past Medical History (Chronic Problems): Chronic Problems Asthma (Chronic) Hypertension (Chronic) Allergies nitrofurantoin [From Macrobid] Adverse Reaction (Verified 03/22/18 09:36) Unknown Home Medications: Ambulatory Orders Medication Instructions Recorded Multivitamins,Therapeutic 1 tab PO DAILY 04/26/15 [Multivitamin] Fish Oil 2 tab PO QHS 01/26/18 Magnesium 2 tablet PO QHS 01/26/18 Valsartan/Hydrochlorothiazide 1 each PO DAILY 03/22/18 [Valsartan-Hctz 160-12.5 mg Tab] Surgical History: cholecystectomy, - - Ovarian cyst removal Psychiatric History: No pertinent psych hx 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 Denies: Chest Pain, Edema, Heaviness, Orthopnea, Palpitations, Paroxysmal Noc. Dyspnea Respiratory: Denies: Cough, Hemoptysis, Pleuritic Pain, Shortness of breath at rest, Shortness of breath upon exertion, Sputum production Gastrointestinal: Denies: Abdominal Pain, Constipation, Hematemesis, Hematochezia, Nausea, Vomiting Genitourinary: Denies: Dysuria, Frequency, Hematuria, Incontinence Gynecological: Denies: Breast symptoms, Excessively long or heavy periods Musculoskeletal: Denies: Joint Pain, Joint stiffness, Joint swelling, Joint Tenderness Skin: Denies: Dryness, Pruritis, Rash, Wounds Neurological: Denies: Balance problems, Difficulty swallowing, Focal weakness, Numbness, Tingling Psychiatric: Denies: Anxiety, Depression, Homicidal Ideations, Suicidal Ideations Hematologic/ Lymphatic: Denies: Easy Bruising, Easy Bleeding VTE Information - Inpt Only VTE Present on Admission: No VTE Pharm Prophylaxis ordered?: Yes Patient Problems: Active and Suspected Problems Chest pain (Acute) - Physical Exam General: Alert, Oriented x3, Cooperative, No apparent distress HEENT: Atraumatic, PERRLA, EOMI, Normocephalic Oral: Moist Mucosa Neck: Supple Lungs: Clear to auscultation, Normal air movement Cardiovascular: Regular rate, Regular Rhythm, Normal S1, Normal S2, No murmurs Abdomen: Bowel Sounds Present, Soft, Non Tender, Non-Distended, No Hepato-splenomegaly Extremities: No edema Skin: No rashes Musculoskeletal: No Tenderness to Palpation of Joints or Extremities Lymphatic: No Cervical, Supraclavicular, or Inguinal Adenopathy Neurological: Cranial nerves II-XII grossly intact, Neuro grossly intact Psych/Mental Status: Normal Affect, Appropriate Vital Signs Temp Pulse Resp BP Pulse Ox 98.4 F 73 14 149/91 H 94 03/22/18 09:27 03/22/18 10:06 03/22/18 09:27 03/22/18 10:06 03/22/18 09:27 Oxygen Flow Rate (L/min) 2 Oxygen Delivery Method Nasal Cannula Weight: 95.8 kg Body Mass Index (BMI) 33.0 Laboratory Tests Past 24 Hrs 03/22/18 03/22/18 09:50 09:50 WBC 4.9 RBC 4.64 Hgb 13.7 Hct 40.2 MCV 86.6 MCH 29.5 MCHC 34.1 RDW 12.5 RDW Differential 38.8 Plt Count 221 MPV 9.8 Immature Gran % (Auto) 0.200 Neut % (Auto) 43.3 L Lymph % (Auto) 39.5 [place] % (Auto) 9.5 Eos % (Auto) 6.7 H Baso % (Auto) 0.8 Absolute Neuts (auto) 2.1 Absolute Lymphs (auto) 1.95 Total Counted Not Reportable Sodium 140 Potassium 3.8 Chloride 108 H Carbon Dioxide 28.0 Anion Gap 4 L BUN 20 H Creatinine 0.78 Estim Creat Clear Calc 74.59 Est GFR (MDRD) Af Amer 97 Est GFR (MDRD) Non-Af 80 BUN/Creatinine Ratio 25.6 H Glucose 105 Calcium 9.3 Troponin I < 0.02 Assessment/Plan Active and Suspected Problems Chest pain (Acute) 62 year old F with past medical history of hypertension, who comes in with complaints of substernal pressure ongoing for 2 hours. 1. Chest pain, atypical, relieved with nitro, concerning for possible angina, EKG shows no acute ST changes, initial troponin is negative, vitals are stable Plan: Admit to PCU, monitor on telemetry, trend troponins, stress test in a.m., 2D echo, aspirin 81mg po, lipid profile in a.m. 2. Hypertension, controlled, continue on HCTZ/Valsartan. 3. DVT PPx - Lovenox SC Code Visit OBSV E&M: 46063 Initial observation care L3
[2018-03-22] MEDS: Nitroglycerin Oint 1 INCH PACKET TRANSDERM. (11:37)
--- NOTE | 2018-03-22 11:46 | ECHOD_ITS ---
Reason For Study: CHEST PAIN Procedure This was a 2D Doppler, Color Flow transthoracic echocardiogram. Exam performed portable in patient room. Left Ventricle Normal LV size. Left ventricular systolic function is normal. The estimated ejection fraction is 60 %. Transmitral diastolic flow velocities suggest mild (stage 1) diastolic dysfunction (reversed pattern). No regional wall motion abnormalities noted. Right Ventricle Normal RV size. Normal systolic function. Atria Normal left atrium. Normal right atrium. Mitral Valve Normal mitral valve. Mild (1+) eccentric mitral valve insufficiency. Tricuspid Valve Normal tricuspid valve. Mild (1+) tricuspid valve insufficiency. Pulmonary artery systolic pressure is 32 mmHg. Aortic Valve Normal aortic valve. Trivial eccentric aortic valve insufficiency. Pulmonic Valve Normal pulmonic valve. Great Vessels Normal aortic root. The pulmonary artery is normal size. Normal inferior vena cava. Pericardium/Pleural No pericardial effusion. MMode/2D Measurements & Calculations LVIDd: 3.9 cm IVSd: 1.1 cm Ao root diam: 3.0 cm LVIDs: 2.7 cm LVPWd: 0.98 cm RVDd: 3.8 cm FS: 32.1 % LAV(MOD-bp): 38.1 ml LA A4 area: 14.7 cm2 RA A4 area: 13.1 cm2 LAV(MOD-bp) Indexed: 18.6 ml/m2 LAV(MOD-sp2): 41.2 ml LAV(MOD-sp4): 35.6 ml Doppler Measurements & Calculations MV E max martin: 73.3 cm/sec Lat Peak E' Martin: 11.2 cm/sec Med Peak E' Martin: 6.7 cm/sec MV A max martin: 68.8 cm/sec E/E' lat: 6.6 E/E' med: 10.9 MV E/A: 1.1 Ao V2 max: 176.3 cm/sec LV V1 max: 154.0 cm/sec PA V2 max: 120.7 cm/sec Ao max P.4 mmHg LV V1 max P.5 mmHg TR max martin: 267.3 cm/sec TR max P.6 mmHg Interpretation Summary Normal LV size. Left ventricular systolic function is normal. The estimated ejection fraction is 60 %. Transmitral diastolic flow velocities suggest mild (stage 1) diastolic dysfunction (reversed pattern). Mild (1+) tricuspid valve insufficiency. Mild (1+) eccentric mitral valve insufficiency. Ordering Physician: Yani Robbins Referring Physician: ARIK ROBERTSON Performed By: Katie Angel, LALITA, RVT
[2018-03-22 12:21] LABS: Magnesium 2.3 mg/dL (1.6-2.6); Thyroid Stim Hormone (TSH) 1.16 uIU/mL (0.358-3.74)
--- NOTE | 2018-03-22 15:07 | CHAPLAIN ---
Type of Pastoral Visit _x__ Initial Visit ___ Follow-up Visit ___ On-call Visit ___ General Patient Visit ___ Spiritual Assessment ___ Family Conference ___ Bereavement ___ Rapid Response ___ Code Blue ___ Other (describe below) Pastoral Care Referral From _x__ Patient ___ Family ___ Nurse ___ Physician ___ Media Operator ___ Package Wrapper ___ Other (describe below) Sacrament/Intervention _x__ Active listening ___ Anointing ___ Taoism ___ Bereavement ___ Communion ___ Vangie exploration ___ _x__ Life review _x__ Prayer ___ Reconciliation ___ Sacrament of Sick ___ Supportive presence ___ Wedding ___ Other (describe below) Pastoral Comments
[2018-03-22] MEDS: Acetaminophen 325 MG Tablet 650 MG PO (16:11)
[2018-03-22 18:09] LABS: Hemoglobin A1c 5.3 % (4.2-6.3)
[2018-03-22] MEDS: Famotidine 20 MG Tablet PO (21:56)
[2018-03-23 03:01] VITALS: PULSE 74
[2018-03-23 03:41] LABS: Hematocrit 37.5 % (37-47); Hemoglobin 12.8 g/dl (12.0-15.0); Mean Corp Hgb Conc 34.1 g/gl (32-36); Mean Corpuscular Hgb 29.8 pg (27.0-32.0); Mean Corpuscular Volume 87.2 fL (81-99); Mean Platelet Vol. 9.6 fl (6.2-12.0); Platelet Count 200 K/mm3 (150-450); RBC Distribution Width CV 12.3 % (11.6-14.6); RBC Distribution Width SD 38.4 fl (35.1-43.9); White Blood Count 4.1 K/mm3 (4.4-11.0)
[2018-03-23 03:42] LABS: Scan Indicated on CBC? Y/N NO
[2018-03-23 03:47] LABS: Prothrombin Time (Protime)PT. 13.6 SECONDS (11.7-14.9)
[2018-03-23 03:48] LABS: Partial Thromboplast Time 32.5 Seconds (24.1-36.2)
[2018-03-23 03:59] LABS: Anion Gap 6 (5-15); BUN 20 mg/dL (7-18); BUN/Creat Ratio 26.6 RATIO (10-20); Calcium,Total 8.9 mg/dL (8.5-10.1); Chloride 110 mmol/L (98-107); Cholesterol 154 mg/dL (200); Creatinine, Serum 0.75 mg/dL (0.55-1.02); EST Glomerular Filtration Rate 83 mL/min (>60); Est Glom Filt Rate - Afr Amer 101 mL/min (>60); Estimated Creatinine Clearance 77.57 ml/min; Glucose 99 mg/dL (74-106); High Density Lipoprotein 48 mg/dL; Potassium 3.6 mmol/L (3.5-5.1); Sodium Level 145 mmol/L (136-145); Triglycerides 56 mg/dL; Very Low Density Lipoprotein 11 mg/dL (5-40)
--- NOTE | 2018-03-23 04:00 | EKG12_ITS ---
Test Reason : AM EKG Blood Pressure : / mmHG Vent. Rate : 077 BPM Atrial Rate : 077 BPM P-R Int : 188 ms QRS Dur : 088 ms QT Int : 386 ms P-R-T Axes : 061 063 063 degrees QTc Int : 436 ms Normal sinus rhythm Normal ECG Confirmed by ROJELIO KELLY, KIM ([id number]), manuscript editor WILBERT PARKER ([id number]) on 03/25/2018 1:23:35 PM Referred By: Confirmed By:KIM SERRATO MD
[2018-03-23 05:28] VITALS: BP 119/76; PULSE 75; RESP 16; TEMP 36.9; O2SAT 96
[2018-03-23] MEDS: Aspirin 81 MG TAB.CHEW PO (05:35)
[2018-03-23 06:25] VITALS: PULSE 75
[2018-03-23 09:15] VITALS: BP 143/66; PULSE 74; RESP 16; TEMP 36.8; O2SAT 94
[2018-03-23] MEDS: Famotidine 20 MG Tablet PO (09:19)
[2018-03-23] MEDS: HYDROCHLOROTHIAZIDE 12.5 MG CAPSULE PO (09:19)
[2018-03-23] MEDS: Multivitamins,Therapeutic Tablet 1 TABLET PO (09:20)
--- NOTE | 2018-03-23 10:10 | STRESSREP ---
Stress Test Report Date: 03/23/2018 Procedure: Exercise tolerance test/imaging study Indications: Chest pain Consent: Per the patient Procedure: The patient exercised on a Kenn protocol for 6 minutes 15 seconds completing Stage II and 15 seconds of Stage III achieving a peak heart rate of 155 bpm (96 % predicted maximal heart rate) with a peak blood pressure 148/84 mmHg and a peak MET capacity of 7 METs. The baseline ECG demonstrated normal sinus rhythm. The peak exercise ECG demonstrated no obvious ECG changes. There were no cardiac dysrhythmias pretest, during exercise, or recovery. The functional capacity was considered average. There was no complaint of chest discomfort during exercise or recovery. The examination was discontinued secondary to dyspnea. Impression: 1. Technically adequate (percent predicted maximal heart rate greater than 85%) exercise tolerance test 2. Peak exercise ECG with no obvious ECG changes 3. No cardiac dysrhythmias pretest, during exercise, or recovery. 4. Nuclear images pending Myocardial perfusion imaging study: Technique: The patient was injected with 13.9 mCi of technetium 99m Cardiolite and subsequently rest SPECT Cardiolite nuclear imaging was obtained in the horizontal long, vertical long, and short axis views. The patient exercised on a Kenn protocol for 15 seconds minutes completing Stage and 15 seconds of Stage III achieving a peak heart rate of 155 bpm (96 % predicted maximal heart rate) with a peak blood pressure 148/84 mmHg and a peak MET capacity of 7 METs. The patient was injected with 44.3 mCi of technetium 99m Cardiolite and subsequently stress SPECT Cardiolite nuclear imaging was obtained in the horizontal long, vertical long, and short axis views. A gated Cardiolite study at peak stress was obtained. Interpretation: Rest and stress SPECT Cardiolite nuclear imaging status post realignment, normalization, and attenuation correction, demonstrates the appearance of relative uniform tracer uptake and myocardial perfusion appearing within normal limits. There is end systolic thickening and brightening. The gated Cardiolite study demonstrates myocardial thickening and inward wall motion. The reported LVEF is 77 %. Impression: 1. Rest and stress SPECT Cardiolite nuclear imaging demonstrate relative uniform tracer uptake and myocardial perfusion appearing within normal limits. 2. The gated Cardiolite study reports an LVEF of 77 %. This note was generated with [employer] software. It may contain incorrect words, spelling, and punctuation that were not noted in checking the note before signing.
--- NOTE | 2018-03-23 10:16 | STRESSREP_ITS ---
Stress Test Report Date: 03/23/2018 Procedure: Exercise tolerance test/imaging study Indications: Chest pain Consent: Per the patient Procedure: The patient exercised on a Kenn protocol for 6 minutes 15 seconds completing Stage II and 15 seconds of Stage III achieving a peak heart rate of 155 bpm (96 % predicted maximal heart rate) with a peak blood pressure 148/84 mmHg and a peak MET capacity of 7 METs. The baseline ECG demonstrated normal sinus rhythm. The peak exercise ECG demonstrated no obvious ECG changes. There were no cardiac dysrhythmias pretest, during exercise, or recovery. The functional capacity was considered average. There was no complaint of chest discomfort during exercise or recovery. The examination was discontinued secondary to dyspnea. Impression: 1. Technically adequate (percent predicted maximal heart rate greater than 85% ) exercise tolerance test 2. Peak exercise ECG with no obvious ECG changes 3. No cardiac dysrhythmias pretest, during exercise, or recovery. 4. Nuclear images pending Myocardial perfusion imaging study: Technique: The patient was injected with 13.9 mCi of technetium 99m Cardiolite and subsequently rest SPECT Cardiolite nuclear imaging was obtained in the horizontal long, vertical long, and short axis views. The patient exercised on a Kenn protocol for 15 seconds minutes completing Stage and 15 seconds of Stage III achieving a peak heart rate of 155 bpm (96 % predicted maximal heart rate) with a peak blood pressure 148/84 mmHg and a peak MET capacity of 7 METs. The patient was injected with 44.3 mCi of technetium 99m Cardiolite and subsequently stress SPECT Cardiolite nuclear imaging was obtained in the horizontal long, vertical long, and short axis views. A gated Cardiolite study at peak stress was obtained. Interpretation: Rest and stress SPECT Cardiolite nuclear imaging status post realignment, normalization, and attenuation correction, demonstrates the appearance of relative uniform tracer uptake and myocardial perfusion appearing within normal limits. There is end systolic thickening and brightening. The gated Cardiolite study demonstrates myocardial thickening and inward wall motion. The reported LVEF is 77 %. Impression: 1. Rest and stress SPECT Cardiolite nuclear imaging demonstrate relative uniform tracer uptake and myocardial perfusion appearing within normal limits. 2. The gated Cardiolite study reports an LVEF of 77 %. This note was generated with OpenTableation software. It may contain incorrect words, spelling, and punctuation that were not noted in checking the note before signing.
[2018-03-23 11:07] VITALS: PULSE 76
--- NOTE | 2018-03-23 11:38 | PCM.DC ---
- Discharge Diagnoses Current Active Problems: Current Active and Chronic Problems Chest pain (Acute) You will use the following diet at home:: Cardiac Your food should be the consistency of: Regular Your liquids should be the consistency of: Regular/Thin Discharge Activity: Return to Normal Activity Additional Activity Instructions:: Please check your blood pressure daily at the same time each morning, record them on paper and present them to your PCP at follow-up. Allergies/Adverse Reactions: Allergies nitrofurantoin [From Macrobid] Adverse Reaction (Verified 03/22/18 09:36) Unknown Medications to take at Discharge Multivitamins,Therapeutic [Multivitamin] 1 tab PO DAILY 04/26/15 Fish Oil 2 tab PO QHS 01/26/18 Magnesium 2 tablet PO QHS 01/26/18 Valsartan 320 mg PO DAILY #30 tab 03/23/18 The following prescriptions were given: Valsartan 320 mg PO DAILY #30 tab Primary Care Physician: Deloris Leblanc MD [Primary Care Provider] - Please follow up with your Primary Care Physician in: 1 week Proposed Discharge Date: 03/23/18
--- NOTE | 2018-03-23 16:51 | PCM.DC.SUM ---
<Ab Salomon - Last Filed: 03/23/18 16:51> Discharge Date and Diagnosis Date of Admission: 03/22/18 Date of Discharge: 03/23/18 - Primary Discharge Diagnosis Chest pain-musculoskeletal Hypertension - Secondary Discharge Diagnosis Chronic Problems Asthma (Chronic) Hypertension (Chronic) Hospital Course and Treatment Imaging Results: 03/23/18 10:30 Nuclear Stress Test - Treadmil [NM] Routine Operations: None Procedures: Stress test Summary of Care Provided: Physical exam on day of discharge: General: Resting comfortably NAD Psych: A/Ox3 normal affect HEENT: PEARRLA AT NC Neck: Supple NT CV: RRR no m/t/r/g/h Resp: CTA Abd: [id number] Soft NT no guarding or rigidity Ext: DP2+= no edema Skin: W/D normal turgor Lymph/Heme: No active bleeding or adenopathy Neuro: CN2-12 intact Hospital course: The patient is a 62 year old F with a history of hypertension who presented to the emergency room with complaint of substernal chest pressure for about 2 hours that was relieved with nitroglycerin in the ER. She was found to have a negative chest x-ray, negative troponin, negative EKG. She was admitted to the hospital for chest pain workup including cycling troponins, cardiac telemetry, repeat EKG, and stress test the following morning. Her workup was negative. Her TSH was also normal, and her LDL was 95. Her blood pressure was poorly controlled while here and she had her losartan dose increased. She had reported that she had recently been taken off hydrochlorothiazide as she had poor renal function on a recent admission. She states that since being off hydrochlorothiazide she had noted that her blood pressure at home had been in the 160s. After discussion she agreed to starting a higher dose of losartan at home and monitoring her blood pressure at home so that the effectiveness could be evaluated on her follow-up with her PCP. We advised her to follow-up with her family doctor in 1-2 weeks. She had stated that she was using the hydrochlorothiazide as she intermittently had some swelling in her lower extremities is time by history she should try compression socks during the day to help with swelling. She is discharged home in stable condition. This patient was seen by Ab Salomon PA-C under the supervision of Doctor Robbins. [] Discharge Diet: Low fat/ Low Cholesterol, 2000 mg Sodium Diet Discharge Activity: Return to Normal Activity Additional Activity Instructions:: Please check your blood pressure daily at the same time each morning, record them on paper and present them to your PCP at follow-up. Home Medications: Medications to take at Discharge Multivitamins,Therapeutic [Multivitamin] 1 tab PO DAILY 04/26/15 Fish Oil 2 tab PO QHS 01/26/18 Magnesium 2 tablet PO QHS 01/26/18 Valsartan 320 mg PO DAILY #30 tab 03/23/18 Following Prescrptions Were Given to Patient: Valsartan 320 mg PO DAILY #30 tab Primary Care Physician: Deloris Leblanc MD [Primary Care Provider] - Please follow up with your Primary Care Physician in: 1 week Disposition: Home Minutes spent on discharge:: 35 Patient Condition:: Stable Medical Necessity - Tobacco Use Smoking Status: Never smoker Tobacco Use: Non-smoker Meaningful Use Info Meaningful Use Diagnoses (Choose all that apply): None applicable <Yani Robbins - Last Filed: 03/23/18 18:33> Discharge Date and Diagnosis - Secondary Discharge Diagnosis Chronic Problems Asthma (Chronic) Hypertension (Chronic) Hospital Course and Treatment Imaging Results: 03/23/18 10:30 Nuclear Stress Test - Treadmil [NM] Routine Summary of Care Provided: The patient is a 62 year old F [] Code Visit Inpatient E&M: 10826 Disch Hosp
== END 2018-03-23 11:39 | disposition home or self-care (01) ==
LOC: ED 10:17 → PCU 11:38
PROVIDERS: Admitting Provider Internal Medicine; Emergency Provider Emergency Medicine; Family Provider Internal Medicine; PCP Internal Medicine; Visit Provider Internal Medicine
DX: R07.89 Other chest pain (principal); I10 Essential (primary) hypertension; J45.909 Unspecified asthma, uncomplicated; Z79.899 Other long term (current) drug therapy; M79.89 Other specified soft tissue disorders
CPT/HCPCS: 36415; 71045; 78452; 80048; 80061; 83036; 83735; 84443; 84484; 85025; 85027; 85610; 85730; 93005; 93017; 93306; 96360; 96361; 99218; 99285; A9500; J7030; A4216; G0378; J2785

== ENCOUNTER 2018-04-24 14:16 | Emergency (ER) | payer OTHER, SELFPAY ==
[2018-04-24 14:18] VITALS: BP 157/71; PULSE 73; RESP 16; TEMP 36.3; O2SAT 96; BMI 32.5
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
--- NOTE | 2018-04-24 14:39 | RAD_ITS ---
STUDY: X-RAY CHEST REASON FOR EXAM: Female, 62 years old. Frontal chest pain. TECHNIQUE: PA and lateral views of the chest. COMPARISON: Portable AP upright chest x-ray March 22, 2018. FINDINGS: The lungs are clear and expanded. There is no demonstrated pleural abnormality. Normal size heart. Normal mediastinum and matthew. Normal visualized pulmonary arteries. Normal visualized aortic arch and descending thoracic aorta. There are stable multilevel degenerative changes of the visualized thoracic spine. Normal visualized ribs, clavicles, and shoulders. Surgical clips consistent with prior cholecystectomy again seen in the right upper quadrant of the abdomen. RAD/Chest PA and Lateral IMPRESSION: No acute cardiopulmonary disease. Electronically Signed: Kush Loomis MD at 15:39 EDT , Service support ,
--- NOTE | 2018-04-24 14:39 | RAD_ITS ---
STUDY: X-RAY - CERVICAL SPINE REASON FOR EXAM: Female, 62 years old. Left-sided/posterior neck pain, frontal chest pain, ulnar side right hand pain. TECHNIQUE: 4 view(s) of the cervical spine were obtained. COMPARISON: None FINDINGS: Normal anterior atlantoaxial articulation. Normal odontoid process. Normal cervical lordosis. There is multi-level endplate spondylosis. There is multi-level degenerative disc disease with multilevel disc space narrowing. There is multi-level hypertrophic degenerative arthrosis of the facet articulations. The soft tissue structures are unremarkable. Focal degenerative calcifications seen near the tips of the C6 and C7 spinous processes. There is no demonstrated osseous destructive process or fracture of the cervical spine. RAD/Cerv Spine 2 or 3 Views IMPRESSION: Multilevel degenerative changes of the cervical spine. Electronically Signed: Kush Loomis MD at 15:34 EDT , Service support ,
--- NOTE | 2018-04-24 14:40 | RAD_ITS ---
STUDY: X-RAY - RIGHT HAND REASON FOR EXAM: Female, 62 years old. Ulnar side right hand pain. TECHNIQUE: 3 view(s) of the hand. COMPARISON: None. FINDINGS: Normal radiocarpal articulation. Normal distal radioulnar joint. Cystic degenerative changes questioned in the posterior lunate as well as the subarticular distal aspect of the capitate. Otherwise, normal visualized carpal bones. Normal carpal articulations There is borderline degenerative arthrosis of the carpometacarpal (CMC) articulation of the thumb. Normal second through fifth carpometacarpal joints. Normal metacarpi. There is borderline degenerative arthrosis of the first metacarpophalangeal (MCP) joint. Normal interphalangeal joint of the thumb. Normal proximal and distal phalanges of the thumb. Normal metacarpophalangeal joints of the second through fifth fingers. Normal proximal and distal interphalangeal joints of the second through fifth fingers. Normal phalanges of the second through fifth fingers. Borderline dorsal soft tissue swelling at the level of the metacarpal heads. There is no demonstrated osseous destructive lesion or fracture. RAD/Hand Min 3 Views IMPRESSION: A few sites of early degenerative change of the right hand, as noted above. No acute osseous abnormality. Electronically Signed: Kush Loomis MD at 15:36 EDT , Service support ,
[2018-04-24] MEDS: Diphth,Pertuss(Acell),Tet Vac 0.5 ML Vial IM (14:45)
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
[2018-04-24 16:29] VITALS: BP 141/73; PULSE 76; RESP 16; O2SAT 97
== END 2018-04-24 16:31 | disposition home or self-care (01) ==
PROVIDERS: Emergency Provider Emergency Medicine; Family Provider Internal Medicine; PCP Internal Medicine
DX: S20.219A Contusion of unspecified front wall of thorax, initial encounter (principal); S16.1XXA Strain of muscle, fascia and tendon at neck level, initial encounter; S60.221A Contusion of right hand, initial encounter; V43.52XA Car driver injured in collision with other type car in traffic accident, initial encounter; Y93.9 Activity, unspecified; Y92.410 Unspecified street and highway as the place of occurrence of the external cause; Y99.8 Other external cause status; I10 Essential (primary) hypertension
CPT/HCPCS: 71046; 72040; 73130; 90471; 90715; 93005; 99282